=== PATIENT | female | born 1985 | race American Indian/Alaskan Native ===

== ENCOUNTER 2023-03-20 13:58 | Emergency (ER) | payer OTHER ==
[~2023-03-20] VITALS: Ht 152.4 cm; Wt 77.1 kg
[~2023-03-20 13:58] MED LIST: BIRTHCONTROL; CEPH500 PO; Colace100 MG PO; Magnesium Citr296 ML PO; ONDA4ODT MM; Protonix40 MG PO; Pyridium100 MG PO
[2023-03-20 14:14] VITALS: BP 120/99
[2023-03-20] MEDS ORDERED: DOXY100 PO (15:13)
== END 2023-03-20 15:23 | disposition home or self-care (01) ==
LOC: ER 13:58
DX: L08.9 Local infection of the skin and subcutaneous tissue, unspecified (principal); Z87.2 Personal history of diseases of the skin and subcutaneous tissue; Z79.899 Other long term (current) drug therapy; Z88.1 Allergy status to other antibiotic agents; Z88.2 Allergy status to sulfonamides; Z91.048 Other nonmedicinal substance allergy status
CPT/HCPCS: 99282